=== PATIENT | female | born 1985 | race Caucasian/White ===

== ENCOUNTER 2020-08-17 02:18 | Emergency (ER) | payer SELFPAY ==
[~2020-08-17] VITALS: Ht 162.6 cm; Wt 83.5 kg
[~2020-08-17 02:18] MED LIST: WARF-36 PO
[2020-08-17] MEDS ORDERED: DIAZEPAM 5 MG TABLET ONE (02:53)
[2020-08-17] MEDS ORDERED: LIDODERM 5% PATCH TD ONE ×2 (02:54→03:00)
[2020-08-17] MEDS ORDERED: KETOROLAC 30 MG/1 ML ONE (02:54)
[2020-08-17] MEDS ORDERED: KETOROLAC 30 MG/1 ML IM ONE (03:00)
[2020-08-17] MEDS ORDERED: DIAZEPAM 5 MG TABLET PO ONE (03:00)
[2020-08-17 04:56] VITALS: BP 108/69
== END 2020-08-17 05:11 | disposition home or self-care (01) ==
LOC: ED 03:45
DX: S39.012A Strain of muscle, fascia and tendon of lower back, initial encounter (principal); M25.531 Pain in right wrist; Z86.718 Personal history of other venous thrombosis and embolism; Z90.49 Acquired absence of other specified parts of digestive tract; Z90.89 Acquired absence of other organs; W18.30XA Fall on same level, unspecified, initial encounter; Y93.89 Activity, other specified; Y92.410 Unspecified street and highway as the place of occurrence of the external cause; Y99.8 Other external cause status
CPT/HCPCS: 72110; 73110; 96372; 99284; J1885

== ENCOUNTER 2021-04-12 17:55 | Emergency (ER) | payer MEDICAID ==
[~2021-04-12] VITALS: Ht 165.1 cm; Wt 80.6 kg
[2021-04-12 18:01] VITALS: BP 180/82
== END 2021-04-12 19:30 | disposition home or self-care (01) ==
LOC: ED 19:00
DX: R20.2 Paresthesia of skin (principal); M79.642 Pain in left hand
CPT/HCPCS: 99283